=== PATIENT | male | born 1980 | race Caucasian/White ===

== ENCOUNTER 2018-04-03 16:08 | Inpatient (IN) | payer OTHER ==
[~2018-04-03] VITALS: Ht 193 cm; Wt 71.4 kg
--- NOTE | ~2018-04-03 | EKG ---
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
[2018-04-03 16:50] VITALS: BP 135/79
--- NOTE | 2018-04-03 16:53 | NUR ---
PATIENT MEETS [facility], CINA=16. PATIENT REPORTS THAT HE HAS A BED ON HOLD FOR HIM AT [facility] IN [place], [place] FOR SOBER LIVING. PIERO AGUILAR MS SILK TOP HAT BODY MAKER
--- NOTE | 2018-04-03 17:07 | NUR ---
A 38, admitted to 5E, under the services of ANNE Anand DO with a diagnosis of OPIATE WITHDRAWAL. Chief complaint is OPIATE WITHDRAWAL. Patient arrived via OTHER from MD. Monitor applied. Initial assessment completed. Vital signs taken and recorded. ANNE ANAND DO notified of admission to the unit. Orders received. See assessment for past medical history, medications and allergies. Patient and/or family oriented to unit. [address] visitation policy reviewed. Clothing/patient valuable form completed. CHET CUMMINGS
[2018-04-03 17:41] LABS: BASO % 0.5 % (0.0-1.0); EOS # 0.1 10*3/uL (0.0-0.4); EOS % 0.8 % (1.0-4.0); HEMATOCRIT 43.6 % (42.0-52.0); HEMOGLOBIN 14.8 g/dl (14.0-18.0); LYMPH # 2.6 10*3/uL (1.3-4.4); LYMPH % 29.8 % (27.0-41.0); MEAN CELL VOLUME 89.7 fl (80.0-94.0); MEAN CORPUSCULAR HGB 30.5 pg (27.0-31.0); MEAN CORPUSCULAR HGB CONC 33.9 g/dl (33.0-37.0); MEAN PLATELET VOLUME 10.2 fl (9.6-12.3); MONO # 0.6 10*3/uL (0.1-1.0); MONO % 6.5 % (3.0-9.0); NEUT # 5.4 10*3/uL (2.3-7.9); NEUT % 62.2 % (47.0-73.0); PLATELET COUNT AUTOMATED 288 10*3/uL (130-400); RED BLOOD COUNT 4.86 10*6/uL (4.50-5.90); RED CELL DISTRI WIDTH 13.1 % (0-14.5); WHITE BLOOD COUNT 8.7 10*3/uL (4.8-10.8)
[2018-04-03 17:49] LABS: INTERNATIONAL NORM RATIO 1.1 (2.0-3.5)
[2018-04-03 17:52] LABS: LIPASE 79 U/L (73-393)
[2018-04-03 17:56] LABS: ALBUMIN 4.1 gm/dl (3.1-4.5); ALKALINE PHOSPHATASE 83 U/L (45-117); BUN 16 mg/dl (7-24); CHLORIDE 110 mmol/L (98-107); CREATININE 0.85 mg/dL (0.70-1.30); POTASSIUM 4.3 mmol/L (3.5-5.1); SGOT/AST 22 IU/L (3-35); SGPT/ALT 48 U/L (12-78); SODIUM 141 mmol/L (136-145); TOTAL PROTEIN 7.9 gm/dL (6.4-8.2)
[2018-04-03 17:57] LABS: ETHYL ALCOHOL < 3.0 mg/dl (<3)
[2018-04-03 18:00] LABS: BILIRUBIN NEGATIVE (NEGATIVE); BLOOD NEGATIVE (NEGATIVE); CLARITY SL CLOUDY (CLEAR); COLOR YELLOW (YELLOW); GLUCOSE NEGATIVE (NEGATIVE); KETONE NEGATIVE (NEGATIVE); LEUKO ESTERASE NEGATIVE (NEGATIVE); NITRITE NEGATIVE (NEGATIVE); SPECIFIC GRAVITY 1.015 (1.005-1.030); UROBILINOGEN 0.2 E.U./dl (0.2-1.0)
[2018-04-03 18:07] LABS: BACTERIA TRACE; MUCOUS 1+; URINE AMPHETAMINES < 1000 (1000ng/ml); URINE BARBITURATES < 200 (200ng/ml); URINE BENZODIAZEPINES < 200 (200ng/ml); URINE CANNABINOIDS (THC) > 50 (50ng/ml); URINE COCAINE > 300 (300ng/ml); URINE METHADONE < 300 (300ng/ml); URINE OPIATES > 300 (300ng/ml); WBC 0-2 wbc/hpf (0-5)
[2018-04-03 18:10] LABS: URINE PHENCYCLIDINE < 25 (25ng/ml)
--- NOTE | 2018-04-03 19:33 | NUR ---
MEDICATED WITH PRN ZOFRAN FOR NAUSEA, MOTRIN FOR A HEADACHE, VISTARIL FOR ANXIOUSNESS, AND REQUIP FOR RESTLESS LEGS. WILL CONTINUE TO MONITOR.
[2018-04-03 20:00] VITALS: BP 102/82
--- NOTE | 2018-04-03 21:55 | NUR ---
24 HR chart check completed.
[2018-04-04] VITALS: BP 103/51
--- NOTE | 2018-04-04 04:21 | NUR ---
DR LEDBETTER AWARE OF PATIENT'S BLOOD PRESSURE. STATES WE WILL WATCH IT
--- NOTE | 2018-04-04 06:40 | NUR ---
PATIENT RESTING IN BED WITH RESPS EASY AND REGULAR. NO S/S OF DISTRESS. BED IN LOWEST POSITION, CALL LIGHT IN REACH
[2018-04-04 08:00] VITALS: BP 104/59
--- NOTE | 2018-04-04 09:30 | NUR ---
PT SLEEPING IN BED, AWAKENS EASILY. TOLERATED ROUTINE MED WITH NO PROBLEM. GIVEN SUBUTEX PO PER ROUTINE ORDER, SEE EMAR. FOR WITHDRAWAL SYMPTOMS. CALL LIGHT IN REACH. REFUSES ANY OTHER MEDICATIONS.
--- NOTE | 2018-04-04 10:30 | NUR ---
Patient resting. Responding to scheduled medications with fewer complaints of pain and anxiety. CALL LIGHT IN REACH.
--- NOTE | 2018-04-04 13:34 | NUR ---
NO CHANGES HAVE BEEN MADE TO THE PATIENT'S AFTERCARE PLAN. PATIENT REPORTS HE WILL BE GOING TO A SOBER LIVING HOME IN [place], [place] CALLED [facility]. PATIENT WOULDN'T SIGN CONSENT FORMS SO [facility] COULD CONFIRM THIS. PIERO AGUILAR MS SALES REPRESENTATIVE MARINE SUPPLIES
--- NOTE | 2018-04-04 14:00 | NUR ---
PT SLEEPING IN BED. RESP-EASY AND REGULAR. CALL LIGHT IN REACH.
[2018-04-04 16:00] VITALS: BP 104/56
--- NOTE | 2018-04-04 16:30 | NUR ---
PT RESTING IN BED WITH EYES CLOSED, AWAKENS EASILY. RESP-EASY AND REGULAR. NO C/O AT THIS TIME. CALL LIGHT IN REACH. SEE SHIFT ASSESSMENT.
--- NOTE | 2018-04-04 17:50 | NUR ---
PT RESTING IN BED WATCHING TV. C/O HEADACHE RATES PAIN 5 ON PAIN SCALE 0-10. ALSO MEDICATED WITH REQUIP AND ROBAXIN FOR RESTLESS LEGS AND MUSCLE ACHES. SEE EMAR. CALL LIGHT IN REACH.
--- NOTE | 2018-04-04 19:21 | NUR ---
PATIENT RESTING IN BED WATCHING TV. DENIES ANY WITHDRAWAL SYMPTOMS OR NEEDS AT THIS TIME. BED IN LOWEST POSITION, CALL LIGHT IN REACH
--- NOTE | 2018-04-04 19:30 | NUR ---
24 HR chart check completed.
[2018-04-04 20:00] VITALS: BP 105/56
[2018-04-05] VITALS: BP 103/50
--- NOTE | 2018-04-05 03:00 | NUR ---
PATIENT RESTING IN BED WITH NO S/S OF DISTRESS. RESPS EASY AND REGULAR. BED IN LOWEST POSITION, CALL LIGHT IN REACH
[2018-04-05 07:02] LABS: CREATININE 0.96 mg/dL (0.70-1.30)
[2018-04-05 07:27] LABS: BASO # 0.1 10*3/uL (0.0-0.1); BASO % 0.7 % (0.0-1.0); EOS # 0.3 10*3/uL (0.0-0.4); EOS % 3.7 % (1.0-4.0); HEMATOCRIT 42.4 % (42.0-52.0); HEMOGLOBIN 13.4 g/dl (14.0-18.0); LYMPH # 3.7 10*3/uL (1.3-4.4); LYMPH % 50.5 % (27.0-41.0); MEAN CORPUSCULAR HGB 29.6 pg (27.0-31.0); MEAN CORPUSCULAR HGB CONC 31.6 g/dl (33.0-37.0); MEAN PLATELET VOLUME 10.9 fl (9.6-12.3); MONO # 0.6 10*3/uL (0.1-1.0); MONO % 7.5 % (3.0-9.0); NEUT # 2.7 10*3/uL (2.3-7.9); NEUT % 37.5 % (47.0-73.0); PLATELET COUNT AUTOMATED 247 10*3/uL (130-400); RED BLOOD COUNT 4.52 10*6/uL (4.50-5.90); RED CELL DISTRI WIDTH 13.2 % (0-14.5); WHITE BLOOD COUNT 7.3 10*3/uL (4.8-10.8)
[2018-04-05 07:30] LABS: MEAN CELL VOLUME 93.8 fl (80.0-94.0)
[2018-04-05 08:00] VITALS: BP 98/62
--- NOTE | 2018-04-05 08:40 | NUR ---
PT RESTING IN BED. TOLERATED ROUTINE MED WITH NO PROBLEM. NO C/O AT THIS TIME, REFUSES NEED FOR PRN MEDICATION. CALL LIGHT IN REACH. SEE SHIFT ASSESSMENT.
--- NOTE | 2018-04-05 10:00 | NUR ---
Patient resting. Responding to scheduled medications with fewer complaints of pain and anxiety. CALL LIGHT IN REACH.
--- NOTE | 2018-04-05 14:00 | NUR ---
Patient resting. Responding to scheduled medications with fewer complaints of pain and anxiety. CALL LIGHT IN REACH.
--- NOTE | 2018-04-05 15:34 | NUR ---
PATIENT'S DISCHARGE PLAN HAS NOT CHANGED. FELICE FONTAINE B.A. PAINT ROLLER WINDER
[2018-04-05 16:00] VITALS: BP 114/60
[2018-04-06] VITALS: BP 124/62
[2018-04-06 08:00] VITALS: BP 102/64
--- NOTE | 2018-04-06 08:42 | NUR ---
PT RESTING IN BED. NO DISTRESS NOTED/ WILL MONITOR
--- NOTE | 2018-04-06 13:01 | NUR ---
Discharge instructions reviewed with patient/family. Patient receptive and verbalizes understanding. Follow-up care arranged. Written instructions given to patient/family. TAMERA CRUZ
== END 2018-04-06 13:01 | disposition home or self-care (01) | DRG 897 ==
LOC: 5E 16:08
PROVIDERS: Internal Medicine; ADMIT Internal Medicine
DX: F11.23 Opioid dependence with withdrawal (principal); E87.8 Other disorders of electrolyte and fluid balance, not elsewhere classified; F14.90 Cocaine use, unspecified, uncomplicated; F12.90 Cannabis use, unspecified, uncomplicated; B18.2 Chronic viral hepatitis C; R00.0 Tachycardia, unspecified; R00.1 Bradycardia, unspecified; Z72.0 Tobacco use; Z71.6 Tobacco abuse counseling; Z80.42 Family history of malignant neoplasm of prostate

== ENCOUNTER 2018-11-28 15:26 | Inpatient (IN) | payer OTHER ==
[~2018-11-28] VITALS: Ht 193 cm; Wt 73.5 kg
--- NOTE | ~2018-11-28 | EKG ---
[place], [place] ELECTROCARDIOGRAM REPORT NAME: JUAN HASSAN UNIT #: [id number] ROOM: 503 DOCTOR: DILAN DRAFT REPORT BIRTHDATE: [birth year] 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
[2018-11-28 16:00] VITALS: BP 112/70
--- NOTE | 2018-11-28 16:00 | NUR ---
38 year old MALE admitted to room # 503 for stabilization. 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 Compliant with admission procedure. . See assessment forms for additional information about patient status.
--- NOTE | 2018-11-28 16:08 | NUR ---
PATIENT MEETS [facility]. CINA=18. PATIENT WANTS TO FOLLOW UP WITH A SOBER LIVING FACILITY IN [place]. FELICE FONTAINE B.A. LABEL DRIER
[2018-11-28 17:06] LABS: BASO # 0.1 10*3/uL (0.0-0.1); BASO % 0.7 % (0.0-1.0); EOS # 0.1 10*3/uL (0.0-0.4); EOS % 0.7 % (1.0-4.0); HEMATOCRIT 42.5 % (42.0-52.0); HEMOGLOBIN 14.2 g/dl (14.0-18.0); LYMPH # 2.1 10*3/uL (1.3-4.4); LYMPH % 27.9 % (27.0-41.0); MEAN CELL VOLUME 92.8 fl (80.0-94.0); MEAN CORPUSCULAR HGB CONC 33.4 g/dl (33.0-37.0); MEAN PLATELET VOLUME 10.5 fl (9.6-12.3); MONO # 0.5 10*3/uL (0.1-1.0); MONO % 6.2 % (3.0-9.0); NEUT # 4.8 10*3/uL (2.3-7.9); NEUT % 64.2 % (47.0-73.0); PLATELET COUNT AUTOMATED 228 10*3/uL (130-400); RED BLOOD COUNT 4.58 10*6/uL (4.50-5.90); RED CELL DISTRI WIDTH 12.9 % (0-14.5); WHITE BLOOD COUNT 7.4 10*3/uL (4.8-10.8)
[2018-11-28 17:17] LABS: INTERNATIONAL NORM RATIO 1.1 (2.0-3.5)
[2018-11-28 17:23] LABS: ALBUMIN 3.9 gm/dl (3.1-4.5); ALKALINE PHOSPHATASE 80 U/L (45-117); BUN 22 mg/dl (7-24); CHLORIDE 109 mmol/L (98-107); CREATININE 0.92 mg/dL (0.70-1.30); ETHYL ALCOHOL < 3.0 mg/dl (<3); POTASSIUM 4.5 mmol/L (3.5-5.1); SGOT/AST 32 IU/L (3-35); SGPT/ALT 56 U/L (12-78); SODIUM 139 mmol/L (136-145); TOTAL PROTEIN 7.2 gm/dL (6.4-8.2)
[2018-11-28 17:31] LABS: URINE AMPHETAMINES < 1000 (1000ng/ml); URINE BARBITURATES < 200 (200ng/ml); URINE BENZODIAZEPINES < 200 (200ng/ml); URINE CANNABINOIDS (THC) < 50 (50ng/ml); URINE COCAINE > 300 (300ng/ml); URINE METHADONE < 300 (300ng/ml); URINE OPIATES > 300 (300ng/ml)
[2018-11-28 17:32] LABS: URINE PHENCYCLIDINE < 25 (25ng/ml)
--- NOTE | 2018-11-28 17:40 | NUR ---
PT MEDICATED WITH ROBAXIN FOR MUSCLE ACHES AND VISTARIL FOR ANXIETY WILL MONITOR
--- NOTE | 2018-11-28 19:12 | NUR ---
PATIENT RESTING IN BED. DENIES NEEDS OR COMPLAINTS AT THIS TIME. REMINDED TO NOT LEAVE THE FLOOR. BED IN LOWEST POSITION, CALL LIGHT IN REACH
[2018-11-29] VITALS: BP 90/46
[2018-11-29 04:00] VITALS: BP 84/45
--- NOTE | 2018-11-29 04:02 | NUR ---
DR CROSS AWARE OF MANUAL BLOOD PRESSURE. STATES "CAN WE GET AN AUTOMATIC".
--- NOTE | 2018-11-29 04:11 | NUR ---
DR CROSS AWARE OF AUTOMATIC BLOOD PRESSURE
--- NOTE | 2018-11-29 04:30 | NUR ---
PHONE CALL FROM DR CROSS AT THIS TIME. HE STATES TO GET ANOTHER BLOOD PRESSURE IN 30 MINUTES AND CALL HIM BACK.
[2018-11-29 05:21] VITALS: BP 92/50
--- NOTE | 2018-11-29 05:21 | NUR ---
PATIENT IS VERY IRRITABLE AFTER BEING WOKEN UP SEVERAL TIMES FOR BLOOD PRESSURE CHECKS. DR CROSS AWARE OF BLOOD PRESSURE OF 92/50 MANUALLY. STATES TO GIVE PATIENT THE SCHEDULED LIBRIUM.
--- NOTE | 2018-11-29 07:24 | NUR ---
Shift chart check completed.
--- NOTE | 2018-11-29 09:44 | NUR ---
SLEEPING - AROUSED EASILY TO TAKE MEDS - SHOOK HEAD NO WHEN ASKED IF NEEDED ANYTHING ELSE FOR SYMPTOMS
[2018-11-29 12:00] VITALS: BP 94/56
--- NOTE | 2018-11-29 12:00 | NUR ---
PT AWOKE FOR PILLS THEN TURNED BACK OVER
--- NOTE | 2018-11-29 12:59 | NUR ---
PATIENT SLEEPING - RESP EASY & NONLABORED - PATIENT DIESN'T WANT BOTHERED AND REFUSES TO ANSWER MOST QUESTIONS
--- NOTE | 2018-11-29 13:14 | NUR ---
PATIENT'S AFTERCARE REMAINS THE SAME. HE WILL BE FOLLOWING UP WITH A SOBER LIVING FACILITY IN [place] UPON DISCHARGE. FELICE FONTAINE B.A. SENIOR ONLINE MARKETING MANAGER
--- NOTE | 2018-11-29 15:13 | NUR ---
FLUID BOLUS STARTED PER ORDERS
[2018-11-29 16:00] VITALS: BP 94/56
[2018-11-29 20:00] VITALS: BP 114/56
[2018-11-30] VITALS: BP 107/59
--- NOTE | 2018-11-30 03:48 | NUR ---
TOOK OVER CARE OF PT. PT LYING IN BED WITH EYES CLOSED, SLEEPING. RESPIRATIONS EASY AND UNLABORED ON ROOM AIR. NO S/S OF WITHDRAWAL AT THIS TIME. CALL LIGHT IN REACH, SAFETY MEASURES IN PLACE.
[2018-11-30 08:00] VITALS: BP 85/48
[2018-11-30 08:58] VITALS: BP 102/50
--- NOTE | 2018-11-30 08:59 | NUR ---
PT ASSESSMENT COMPLETE AT THIS TIME. PT APPEARS LETHARGIC AND DOES NOT TURN FROM LYING ON SIDE FACING WINDOW. MANUAL BLOOD PRESSURE OBTAINED: 102/50. LUNG SOUNDS AUSCULTATED. PATIENT DENIES ANY S/S OF WITHDRAWAL AND COMMUNICATES VERY LITTLE. PT ADVISED TO PUT CALL LIGHT ON FOR ANY NEEDS/WITHDRAWAL S/S. RESPIRATIONS EASY AND UNLABORED. WILL MONITOR. CALL LIGHT IN REACH, SAFETY MEASURES IN PLACE.
[2018-11-30 12:00] VITALS: BP 90/52
--- NOTE | 2018-11-30 12:48 | NUR ---
PATIENT IS GOING TO FOLLOW UP WITH SOBER LIVING FACILITY IN [place] FOR SHELTER CARE. PATIENT REFUSED TO SIGN ANY RELEASES FOR THE FACILITY. FELICE FONTAINE B.A. EXECUTOR OF ESTATE
--- NOTE | 2018-11-30 13:00 | NUR ---
PT RESTING IN BED, RESPIRATIONS EASY AND UNLABORED. PT AROUSES TO VERBAL STIMULI BUT DOES NOT COMMUNICATE WITH NURSE AND CONTINUES TO KEEP BODY TURNED TOWARDS THE WALL. PT DENIES NEEDING ANYTHING. PATIENT ATTENDANT ADVISED TO ORDER PATIENT A RUNNING TRAY TO ENSURE THAT HE HAS SOMETHING TO EAT. WILL CONITNUE TO MONITOR PT.
[2018-11-30 16:00] VITALS: BP 98/53
--- NOTE | 2018-11-30 16:51 | NUR ---
PT LYING IN BED, SLEEPING, AROUSES EASILY TO VERBAL STIMULI. PT DENIES ANY DISTRESS OR WITHDRAWAL SYMPTOMS. WHEN ASKED IF HE WOULD LIKE A RUNNING TRAY ORDERED FOR DINNER, PT REPLIES WITH YES. TRAY ORDERED AT THIS TIME. PT ADVISED TO USE CALL LIGHT FOR ANYTHING THAT HE MAY NEED. ALL SAFETY MEASURES IN PLACE. CALL LIGHT IN REACH.
--- NOTE | 2018-11-30 19:05 | NUR ---
ARRIVED ON SHIFT, INTRODUCED TO PATIENT, BEDSIDE REPORT RECEIVED, WHITE BOARD UPDATED, ENCOURAGED CALL LIGHT USE, AND REMINDED NOT TO LEAVE THE FLOOR, VERSED UNDERSTANDING.
[2018-11-30 20:00] VITALS: BP 107/55
--- NOTE | 2018-11-30 22:15 | NUR ---
24 HR chart check completed.
[2018-12-01] VITALS: BP 135/59
--- NOTE | 2018-12-01 05:34 | NUR ---
Patient sleeping. Respirations relaxed and easy. [place]iderails up 2. [place] on. DARRYL BOYLE
[2018-12-01 06:35] LABS: BASO # 0.1 10*3/uL (0.0-0.1); BASO % 0.8 % (0.0-1.0); EOS # 0.1 10*3/uL (0.0-0.4); EOS % 1.7 % (1.0-4.0); HEMATOCRIT 41.7 % (42.0-52.0); HEMOGLOBIN 13.8 g/dl (14.0-18.0); LYMPH # 2.7 10*3/uL (1.3-4.4); LYMPH % 36.9 % (27.0-41.0); MEAN CORPUSCULAR HGB 30.1 pg (27.0-31.0); MEAN CORPUSCULAR HGB CONC 33.1 g/dl (33.0-37.0); MONO # 0.5 10*3/uL (0.1-1.0); NEUT # 3.9 10*3/uL (2.3-7.9); NEUT % 53.5 % (47.0-73.0); PLATELET COUNT AUTOMATED 212 10*3/uL (130-400); RED BLOOD COUNT 4.58 10*6/uL (4.50-5.90); RED CELL DISTRI WIDTH 12.7 % (0-14.5); WHITE BLOOD COUNT 7.2 10*3/uL (4.8-10.8)
--- NOTE | 2018-12-01 08:34 | NUR ---
ASSESSMENT COMPLETE ON PT. PT SLEEPING BUT AROUSES TO VERBAL STIMULI. PT COMPLAINS OF NOTHING BUT DOES NOT TURN AROUND TO SPEAK TO STAFF. RESPIRATIONS EASY AND UNLABORED ON ROOM AIR. ALL SAFETY MEASURES IN PLACE. CALL LIGHT IN REACH.
[2018-12-01 08:36] VITALS: BP 100/48
[2018-12-01 12:50] VITALS: BP 88/50
--- NOTE | 2018-12-01 13:22 | NUR ---
NOTIFIED DR AQUINO THAT PT BLOOD PRESSURE IS 88/50 MANUALLY. ORDERS GIVEN TO MONITOR PT.
--- NOTE | 2018-12-01 15:53 | NUR ---
PT LYING IN BED, SLEEPING. EASILY AROUSES TO VERBAL STIMULI. PT DENIES NEEDING ANYTHING AND DENIES WITHDRAWAL SYMPTOMS. RESPIRATIONS EASY AND UNLABORED. MANUAL BLODO PRESSURE OBTAINED, 94/50. PT STATES THAT HE HAS BEEN DRINKING WATER AND HAS BEEN UP TO THE BATHROOM A FEW TIMES TODAY. NOTIFIED PATIENT THAT WE WILL ORDER HIM A RUNNING TRAY FOR DINNER AND HE SAYS "OKAY". WILL CONTINUE TO MONITOR. CALL LIGHT IN REACH.
[2018-12-01 15:55] VITALS: BP 98/50
--- NOTE | 2018-12-01 19:45 | NUR ---
PATIENT ATTENDANT COMES TO THIS NURSE AND REPORTS THAT PATIENT IS NOT IN ROOM AND ALL BELONGINGS ARE GONE. 5TH FLOOR IS SEARCHED AND SECURITY IS CALLED AT THIS TIME BY TELMA ROSENBERG. NURSING CARPENTRY TEACHER NOTIFIED. AN ATTEMPT IS MADE TO CALL NUMBER FOR PATIENT THAT IS LISTED A CONTACT NUMBER, NO VOICEMAIL IS SET UP, THERE IS NO POWER PRESS OPERATOR. AT THIS TIME, THERE IS NO TRACE OF PATIENT TAKING IV CATHETER OUT BEFORE LEAVING FACILITY. APPROPRIATE PROTOCOL IS TAKEN AT THIS TIME DUE TO PATIENT LEAVING AMA WITH IN TACT IV CATHETER.
--- NOTE | 2018-12-01 20:04 | NUR ---
Attempted to call number listed in the computer for this patient [phone]. Unable to leave a message.
--- NOTE | 2018-12-01 20:11 | NUR ---
[facility] POLICE NOTIFIED AT THIS TIME THAT A PATIENT HAS LEFT FACILITY WITH IN TACT IV ACCESS, PER POLICY.
--- NOTE | 2018-12-01 20:50 | NUR ---
[facility] Police Dept. [facility] called to report they found this patient and they are having their fire department medical crew remove the IV.
== END 2018-12-01 20:22 | disposition left against medical advice (07) | DRG 894 ==
LOC: 5E 15:26
PROVIDERS: Internal Medicine; ADMIT Family Medicine
DX: F11.23 Opioid dependence with withdrawal (principal); F14.23 Cocaine dependence with withdrawal; E87.8 Other disorders of electrolyte and fluid balance, not elsewhere classified; F12.90 Cannabis use, unspecified, uncomplicated; B19.20 Unspecified viral hepatitis C without hepatic coma; Z53.21 Procedure and treatment not carried out due to patient leaving prior to being seen by health care provider; I95.9 Hypotension, unspecified; R00.1 Bradycardia, unspecified; Z72.0 Tobacco use; Z80.42 Family history of malignant neoplasm of prostate